=== PATIENT | male | born 1985 | race Caucasian/White ===

== ENCOUNTER 2018-12-24 06:47 | Day surgery (SDC) | payer MEDICARE, MEDICAID ==
[~2018-12-24 06:47] MED LIST: Lactated Ringers 1,000 ML IV SCH; Sodium Chloride 0.9% 10 ML Syringe FLUSH PRN
[2018-12-24] MEDS ORDERED: Propofol 200 MG/20 ML SDV IV ONE (06:48)
[2018-12-24] MEDS ORDERED: Lidocaine 1% 30 ML SDV INJECT ONE (06:48)
--- NOTE | 2018-12-24 08:47 | PCM.OPNOTE ---
- General Post-Op/Procedure Note Date of Surgery/Procedure: 12/24/18 Operative Procedure(s): c scope Findings: rectal polyp Pre Op Diagnosis: + FIT Post-Op Diagnosis: rectal polyp Anesthesia Technique: MAC Primary Surgeon: Atul Alvarez Anesthesia Provider: Paco Brantley Pathology: rectal polyp Complications: None Condition: Good Free Text/Narrative:: see dictation
[2018-12-24 09:42] VITALS: BP 106/69
--- NOTE | 2018-12-24 14:30 | OR ---
DATE OF OPERATION: 12/24/2018 SURGEON: Atul Alvarez MD PROCEDURE PERFORMED: Colonoscopy. PREOPERATIVE DIAGNOSIS: Positive FIT. POSTOPERATIVE DIAGNOSIS: Rectal polyp. INDICATIONS FOR PROCEDURE: This is a 33-year-old white male who recently underwent a FIT, noted to have blood in his stool. He was offered and accepted colonoscopy. PROCEDURE IN DETAIL: After an excellent IV sedation was administered, the patient's digital rectal exam was performed. Flexible colonoscope was inserted and advanced to the cecum. The prep was marginal. We sucked out approximately 1700 mL of stool. We got an acceptable view of the colon and the following findings were noted. Ascending colon was unremarkable. Transverse colon was unremarkable. Descending colon was unremarkable. Sigmoid unremarkable. Rectum: There was small polypoid lesion. Photo and biopsies were taken. Colon was deflated as the scope was removed. The patient tolerated the procedure. Results by letter. /[id number] /MARCUS
== END 2018-12-24 09:30 | disposition home or self-care (01) ==
LOC: FB.SDS 06:47
PROVIDERS: ATTEND Surgery
DX: D12.8 Benign neoplasm of rectum (principal); F41.9 Anxiety disorder, unspecified; F32.9 Major depressive disorder, single episode, unspecified; Z79.51 Long term (current) use of inhaled steroids; Z79.52 Long term (current) use of systemic steroids; Z79.899 Other long term (current) drug therapy
CPT/HCPCS: 00811; 45380; J2001; J2704; J7120; 88305

== ENCOUNTER → 2019-09-07 | Outpatient (CLI) | payer MEDICARE, MEDICAID | LOC: FB.MH 08:00 | PROVIDERS: ATTEND Psychiatry & Neurology Psychiatry | DX: F34.0 Cyclothymic disorder (principal); F41.1 Generalized anxiety disorder; F70 Mild intellectual disabilities | CPT/HCPCS: 99213 ==

== ENCOUNTER 2019-12-15 12:45 | Emergency (ER) | payer MEDICARE, MEDICAID ==
[2019-12-15 13:47] LABS: ACETAMINOPHEN < 2 ug/mL (<2)
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
[2019-12-15 18:12] VITALS: BP 110/66; PULSE 83
== END 2019-12-15 15:00 | disposition home or self-care (01) ==
LOC: FB.ED 12:45
DX: R45.6 Violent behavior (principal); F41.9 Anxiety disorder, unspecified; F32.9 Major depressive disorder, single episode, unspecified; Z79.899 Other long term (current) drug therapy; Z91.09 Other allergy status, other than to drugs and biological substances
CPT/HCPCS: 36415; 80053; 80305-QW; 80307; 84443; 85025; 99283; 99285

== ENCOUNTER 2025-07-12 16:48 | Emergency (ER) | payer OTHER, MEDICAID ==
[2025-07-12] MEDS: Diphtheria,Pertussis(Acell),Tetanus Vaccine 0.5 ML Syringe IM ONE (18:01)
[2025-07-12 18:21] VITALS: BP 108/77; PULSE 96
== END 2025-07-12 18:05 ==
LOC: FB.ED 16:48
DX: S00.83XA Contusion of other part of head, initial encounter (principal); S00.01XA Abrasion of scalp, initial encounter; Z91.048 Other nonmedicinal substance allergy status; Z23 Encounter for immunization; Z79.899 Other long term (current) drug therapy; W22.8XXA Striking against or struck by other objects, initial encounter; Y93.89 Activity, other specified
CPT/HCPCS: 90471; 90715; 99282-25